=== PATIENT | male | born 1975 | race Caucasian/White ===

== ENCOUNTER 2017-10-30 09:02 | Emergency (ER) | END 2017-10-30 09:53 | disposition home or self-care (01) ==

== ENCOUNTER 2017-10-31 14:01 | Emergency (ER) | END 2017-10-31 18:20 | disposition home or self-care (01) ==

== ENCOUNTER 2017-12-20 13:40 | Emergency (ER) | END 2017-12-20 16:53 | disposition home or self-care (01) ==

== ENCOUNTER 2018-08-30 15:44 | Emergency (ER) | payer OTHER ==
[~2018-08-30] VITALS: Wt 70.7 kg
[~2018-08-30 15:44] MED LIST: ACET500T98 PO; ACYC800T PO; CLIN300C10 PO; IBUP-1542 PO
[2018-08-30] MEDS ORDERED: KETOROLAC 60 MG INJ IM STA (17:45)
[2018-08-30] MEDS ORDERED: traMADol 50 MG TAB PO ONE (18:00)
[2018-08-30] MEDS ORDERED: IBUP-1545 PO (19:05)
--- NOTE | 2018-08-30 19:23 | ERD ---
ER Documentation Chief Complaint Chief Complaint R. THUMB PAIN, DENIES TRAUMA HPI History of Present Illness: 43-year-old male who denies a past medical history coming in today due to complaint of right hand pain. She denies injury. 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 Patient reports pain has been intermittent for the past 3 months but today patient is having severe pain At home pharmacological/nonpharmacological treatment for symptoms: Denies Denies social concerns; Denies recent foreign travel ROS All systems reviewed and are negative except as per history of present illness. Medications Home Meds Active Scripts Ibuprofen* (Ibuprofen*) 800 Mg Tab, 800 MG PO QID PRN for PAIN AND/OR INFLAMMATION, #30 TAB Prov:NOAH SANDERS NP 08/30/18 Ibuprofen* (Ibuprofen*) 600 Mg Tablet, 600 MG PO Q6H PRN for PAIN, #30 TAB Prov:DEMI YUEN DO 12/20/17 Acetaminophen (Tylenol) 500 Mg Tab, 500 MG PO Q6H PRN for PAIN, #30 TAB Prov:DEMI YUEN DO 12/20/17 Acyclovir* (Acyclovir*) 800 Mg Tablet, 800 MG PO 5 TIMES DAILY for 7 Days, TAB Prov:ASAD AREVALO MD 10/31/17 Ibuprofen* (Motrin*) 600 Mg Tab, 600 MG PO Q6, #30 TAB Prov:VINNY MALDONADO 10/30/17 Clindamycin Hcl* (Clindamycin Hcl*) 300 Mg Capsule, 300 MG PO TID for 10 Days, CAP Prov:VINNY MALDONADO 10/30/17 Allergies Allergies: Coded Allergies: No Known Allergy (Unverified , 10/31/17) PMhx/Soc History of Surgery: No Anesthesia Reaction: No Hx Neurological Disorder: No Hx Respiratory Disorders: Yes (asthma) Hx Cardiac Disorders: No Hx Psychiatric Problems: No Hx Miscellaneous Medical Probl: Yes (shingles) Hx Alcohol Use: Yes (beer daily) Hx Substance Use: No Hx Tobacco Use: Yes Smoking Status: Never smoker FmHx Family History: diabetes Physical Exam Vitals Vital Signs Date Temp Pulse Resp B/P (MAP) Pulse Ox O2 O2 Flow FiO2 Time Delivery Rate 08/30/18 98.2 68 20 137/98 95 16:49 (111) Physical Exam Const: No acute distress, afebrile Head: Atraumatic Eyes: Normal Conjunctiva ENT: Normal External Ears, Nose and Mouth. Neck: Full range of motion. No meningismus. Resp: Clear to auscultation bilaterally Cardio: Regular rate and rhythm, no murmurs Abd: Soft, non tender, non distended. No guarding, no masses, no rigidity Skin: No petechiae or rashes Back: No midline or flank tenderness Ext: No cyanosis, or edema; rue: Tenderness to palpation to thumb and medial aspect of hand and ventral wrist, no snuffbox tenderness Neur: Awake and alert x3, speaking in clear sentences, no focal deficits or facial asymmetry Psych: Normal Mood and Affect Results 24 hrs Current Medications Medications Dose Sig/Brandie Start Time Status Last (Trade) Ordered Route PRN Stop Time Admin Dose Reason Admin Ketorolac 60 mg ONCE STAT 08/30/18 DC 08/30/18 Tromethamine IM 17:45 08/30/18 17:56 (Toradol) 17:48 Tramadol 50 mg ONCE ONCE 08/30/18 DC 08/30/18 HCl PO 18:00 08/30/18 17:55 (Ultram) 18:01 Procedures/MDM ED COURSE: ED course includes a thorough examination and history. The patient was stable throughout ED course. I kept the patient and/or family informed of laboratory and diagnostic imaging results throughout the ED course. LABS: None MEDICATIONS GIVEN IN ER: Ketorolac and tramadol Patient tolerated medication well with no adverse reactions. Patient reported improvement in pain. DIAGNOSTIC IMAGING: Read by radiologist. Right hand x-ray showing: IMPRESSION: No acute fracture or subluxation. Sheree Wayne Physician Date Time Electronically viewed and signed by Physician Stanislav on 08/30/2018 18:26 Right wrist x-ray showing: IMPRESSION: . No acute fracture or subluxation. Rajeshy Wayne, Physician Date Time Electronically viewed and signed by Sheree Wayne Physician on 08/30/2018 18:24 PROCEDURES: None. MEDICAL DECISION MAKING: Low suspicion for life-threatening medical emergency. Otherwise healthy patient presenting with constellation of symptoms likely representing hand injury likely related to overuse as characterized by history, physical exam findings , radiology findings. Patient reassessment @ 1915: Results discussed. Orders placed for Velcro wrist splint. Patient hemodynamically stable. No respiratory distress, otherwise relatively well appearing and nontoxic. Disposition given. Patient educated on diagnoses, prescriptions, follow-up care, return precautions. Strict return precautions given for worsening condition; questions answered discharge. Patient verbalizes understanding of discharge instructions. PRESCRIPTIONS FOR HOME: Ibuprofen, acetaminophen DISPOSITION: DISCHARGE At this time, patient is stable for discharge and outpatient management. I have instructed the patient to follow-up with his/her primary care physician in 1-2 days. I have discussed with the patient the possibility of needing to see a specialist for further workup and imaging studies if symptoms persist. I have instructed the patient to promptly return to the ER for any new or worsening symptoms including increased pain, fever, nausea, vomiting, weakness or LOC. The patient and/or family expressed understanding of and agreement with this plan. All questions were answered. Home care instructions were provided. DISCLAIMER: Inadvertent spelling and grammatical errors are likely due to EHR/dictation software use and do not reflect on the overall quality of patient care. Also, please note that the electronic time recorded on this note does not necessarily reflect the actual time of the patient encounter. Departure Diagnosis: Primary Impression: Injury of hand Condition: Stable Patient Instructions: Sprain Hand [facility]errals: [facility] YOU HAVE RECEIVED A MEDICAL SCREENING EXAM AND THE RESULTS INDICATE THAT YOU DO NOT HAVE A CONDITION THAT REQUIRES URGENT TREATMENT IN THE EMERGENCY DEPARTMENT. FURTHER EVALUATION AND TREATMENT OF YOUR CONDITION CAN WAIT UNTIL YOU ARE SEEN IN YOUR DOCTORS OFFICE WITHIN THE NEXT 1-2 DAYS. IT IS YOUR RESPONSIBILITY TO MAKE AN APPOINTMENT FOR FOLOW-UP CARE. IF YOU HAVE A PRIMARY DOCTOR --you should call your primary doctor and schedule an appointment IF YOU DO NOT HAVE A PRIMARY DOCTOR YOU CAN CALL OUR PHYSICIAN REFERRAL HOTLINE AT IF YOU CAN NOT AFFORD TO SEE A PHYSICIAN YOU CAN CHOSE FROM THE FOLLOWING [facility] [address] [facility]. [place] [facility] [address] [facility] [address] [facility] [address] [facility] [address] [facility]. [facility] [address] [facility]. [facility] YOU HAVE RECEIVED A MEDICAL SCREENING EXAM AND THE RESULTS INDICATE THAT YOU DO NOT HAVE A CONDITION THAT REQUIRES URGENT TREATMENT IN THE EMERGENCY DEPARTMENT. FURTHER EVALUATION AND TREATMENT OF YOUR CONDITION CAN WAIT UNTIL YOU ARE SEEN IN YOUR DOCTORS OFFICE WITHIN THE NEXT 1-2 DAYS. IT IS YOUR RESPONSIBILITY TO MAKE AN APPOINTMENT FOR FOLOW-UP CARE. IF YOU HAVE A PRIMARY DOCTOR --you should call your primary doctor and schedule and appointment IF YOU DO NOT HAVE A PRIMARY DOCTOR YOU CAN CALL OUR PHYSICIAN REFERRAL HOTLINE AT . IF YOU CAN NOT AFFORD TO SEE A PHYSICIAN YOU CAN CHOSE FROM THE FOLLOWING [facility] INSTITUTIONS: [facility] [address] [place] [address] [facility] [address] [place] [address] [facility] [address] [place] [address] Additional Instructions: Thank you very much for allowing us to participate in your care. Your health and safety is our top priority at [facility]. It is important to read all discharge instructions and education provided in your discharge packet. Call your primary care doctor TOMORROW for an appointment during the next 2-4 days and bring all the information and medications prescribed. Have prescriptions filled and follow precisely the directions on the label. --Ibuprofen is a medication that will help with pain/inflammation. At the dosage of 600 to 800 mg, this will help with inflammation/swelling. Take this medication as prescribed. If the symptoms get worse and your provider is unavailable, return to the Emergency Department immediately. NOAH SANDERS NP Aug 30, 2018 19:23
[2018-08-30 19:30] VITALS: BP 158/93; PULSE 79; RESP 18
== END 2018-08-30 19:30 | disposition home or self-care (01) ==
LOC: FTE 15:44
DX: S69.91XA Unspecified injury of right wrist, hand and finger(s), initial encounter (principal); J45.909 Unspecified asthma, uncomplicated; X50.3XXA Overexertion from repetitive movements, initial encounter; Y92.89 Other specified places as the place of occurrence of the external cause; Z87.891 Personal history of nicotine dependence
CPT/HCPCS: 29125; 73110; 73130; 96372; J1885; Z7502; Z7610